=== PATIENT | male | born 1970 | race Asian ===

== ENCOUNTER 2017-08-21 07:06 | Day surgery (SDC) | payer BC ==
[2017-08-21] VITALS (10 sets, daily range): BP systolic 121–140; BP diastolic 89–96
[~2017-08-21] VITALS: Ht 190.5 cm; Wt 99.8 kg
[2017-08-21] MEDS ORDERED: NKM (07:42)
--- NOTE | 2017-08-21 08:20 | Pre-Procedure Note/Attestation ---
Pre-Procedure Note/Attestation Complete Prior to Procedure Planned Procedure: not applicable Procedure Narrative: colonoscopy Indications for Procedure Pre-Operative Diagnosis: diarrhea Attestation I attest that I discussed the nature of the procedure; its benefits; risks and complications; and alternatives (and the risks and benefits of such alternatives ), prior to the procedure, with the patient (or the patient's legal business process representative). I attest that, if there was a reasonable possibility of needing a blood transfusion, the patient (or the patient's legal business process representative) was given the [facility] standardized written summary, pursuant to the Kristofer Pau Blood Safety Act ([place] Health and Safety Code # 1645, as amended). I attest that I re-evaluated the patient just prior to the surgery and that there has been no change in the patient's H&P, except as documented below: TANA RUSHING Aug 21, 2017 08:20
--- NOTE | 2017-08-21 08:20 | Pre-Procedure Note/Attestation ---
Pre-Procedure Note/Attestation Complete Prior to Procedure Planned Procedure: not applicable Procedure Narrative: colonoscopy Indications for Procedure Pre-Operative Diagnosis: diarrhea Attestation I attest that I discussed the nature of the procedure; its benefits; risks and complications; and alternatives (and the risks and benefits of such alternatives ), prior to the procedure, with the patient (or the patient's legal petroleum products sales representative). I attest that, if there was a reasonable possibility of needing a blood transfusion, the patient (or the patient's legal petroleum products sales representative) was given the [facility] standardized written summary, pursuant to the Kristofer Pau Blood Safety Act ([place] Health and Safety Code # 1645, as amended). I attest that I re-evaluated the patient just prior to the surgery and that there has been no change in the patient's H&P, except as documented below: TANA RUSHING Aug 21, 2017 08:20
--- NOTE | 2017-08-21 08:20 | Pre-Procedure Note/Attestation ---
Pre-Procedure Note/Attestation Complete Prior to Procedure Planned Procedure: not applicable Procedure Narrative: colonoscopy Indications for Procedure Pre-Operative Diagnosis: diarrhea Attestation I attest that I discussed the nature of the procedure; its benefits; risks and complications; and alternatives (and the risks and benefits of such alternatives ), prior to the procedure, with the patient (or the patient's legal inbound customer service representative). I attest that, if there was a reasonable possibility of needing a blood transfusion, the patient (or the patient's legal inbound customer service representative) was given the [facility] standardized written summary, pursuant to the Kristofer Pau Blood Safety Act ([place] Health and Safety Code # 1645, as amended). I attest that I re-evaluated the patient just prior to the surgery and that there has been no change in the patient's H&P, except as documented below: TANA RUSHING Aug 21, 2017 08:20
--- NOTE | 2017-08-21 08:22 | Short Stay Surgery H&P ---
History of Present Illness History of Present Illness Chief Complaint diarrhea CYNTHIA Contreras is a 47 year old male who was admitted on for Diarrhea,Colon Cancer Patient History Allergies: Coded Allergies: No Known Allergies (Unverified , 08/21/17) PAST MEDICAL HISTORY: (1) Hx of appendectomy Past Surgeries: Social History: Medication History Scheduled No Known Medications* (NKM - No Known Medications*), 0 ., (Reported) Review of Systems Cardiovascular: Reports: no symptoms Respiratory: Reports: no symptoms Skeletal: Reports: no symptoms Gastrointestinal: Reports: no symptoms Neurologic: Reports: no symptoms Endocrine: Reports: no symptoms Hematologic: Reports: no symptoms Physical Exam Vital Signs Last Vital Signs Date Time Temp Pulse Resp B/P (MAP) Pulse Ox O2 Delivery O2 Flow Rate FiO2 08/21/17 07:41 97.7 83 19 140/93 94 Room Air Plan Plan of Care colonoscopy Final Diagnosis: Attestation Are the patient's medical conditions optimized for surgery? Attestation Response: yes TANA RUSHING Aug 21, 2017 08:22
[2017-08-21] MEDS ORDERED: Propofol 200mg/20ml IV ONE (08:30)
[2017-08-21] MEDS ORDERED: fentaNYL 100 mcg/2 mL IV ONE (08:30)
[2017-08-21] MEDS ORDERED: LR 1000ml ONE (08:30)
[2017-08-21] MEDS ORDERED: Midazolam 2mg/2ml Inj ONE (08:30)
[2017-08-21] MEDS ORDERED: Acetaminophen (Non formulary) 100 ML IV ONE (08:45)
--- NOTE | 2017-08-21 09:11 | Endoscopy Procedure Note ---
Endoscopy Procedure Note Indication for Procedure: h/o of colon cancer Procedures Performed: colonoscopy Operative Findings/Diagnosis: large polyp Specimen: yes Pt Tolerated Procedure Well: Yes Estimated Blood Loss: none Anesthesiologist: see chart Anesthesia: MAC Implant(s) used?: No 50 yrs or older w/o bx or poly: No 10yrs. F/U not recommended: Yes If not recommended, why?: Above average risk 10 yrs. F/U needed: Yes 18 years or older w/prev. colo: Yes <3yrs. since last colonoscopy: No TANA RUSHING Aug 21, 2017 09:11
--- NOTE | 2017-08-22 14:45 | Cardiology Report ---
APPROVED REPORT EKG Measurement Heart [id number] [place] 194P33 [id number] Normal sinus rhythm Incomplete right bundle branch block Borderline ECG
--- NOTE | 2017-08-22 14:45 | Cardiology Report ---
APPROVED REPORT EKG Measurement Heart [id number] [place] 194P33 [id number] Normal sinus rhythm Incomplete right bundle branch block Borderline ECG
--- NOTE | 2017-08-22 14:45 | Cardiology Report ---
APPROVED REPORT EKG Measurement Heart [id number] [place] 194P33 [id number] Normal sinus rhythm Incomplete right bundle branch block Borderline ECG
--- NOTE | 2017-08-24 08:45 | Procedure Note ---
DATE OF PROCEDURE: 08/21/2017 REFERRING PHYSICIAN: SURGEON: Darrel Chadwick MD. PROCEDURE: Colonoscopy with snare polypectomy and biopsy. ANESTHESIOLOGIST: Hawk Wang . INSTRUMENT: Olympus adult flexible colonoscope. REASON FOR PROCEDURE: History of colon cancer. The procedure, risks, benefits, and possible consequences, including hemorrhage, aspiration, perforation and infection, and alternative treatments, were explained to the patient/legal guardian by Dr. Darrel Chadwick and the patient/legal guardian understood and accepted these risks. FINDINGS: After informed consent was obtained and the patient was adequately sedated, first rectal exam was performed, which was normal. Then, the scope was advanced from the rectum to cecum documented by appendiceal orifice, ileocecal valve, and right upper quadrant palpation. Quality of prep was very good. The patient had a large polyp in the cecum, sessile, relatively flat, measured roughly about 1.5 cm, removed with a hot snare polypectomy technique. There was another smaller polyp in the ascending colon measured roughly about 6 mm, removed with the cold biopsy forceps technique. There was no further polyp seen in this examination. The patient had anastomotic surgery in the rectum area. Retroflexion of the rectum showed evidence of internal hemorrhoids. IMPRESSION: 1. Two colonic polyps removed, see above for details. 2. Internal hemorrhoids. 3. History of partial colectomy. RECOMMENDATIONS: The patient has a big polyp in the cecum, depending on the pathology, we recommend a repeat colonoscopy in two years versus earlier if the pathology is worrisome. Darrel Chadwick M.D. DR: LAURIE JOB#: [id number] CC:
== END 2017-08-21 11:05 | disposition home or self-care (01) ==
LOC: GAS 07:06
DX: D12.0 Benign neoplasm of cecum (principal); D12.2 Benign neoplasm of ascending colon; K64.8 Other hemorrhoids; Z90.89 Acquired absence of other organs; Z85.038 Personal history of other malignant neoplasm of large intestine; Z90.49 Acquired absence of other specified parts of digestive tract
CPT/HCPCS: 45380; 45385; 93005; J2250; J2704; J3010; J7120; 94003; 94150